=== PATIENT | male | born 1955 ===

== ENCOUNTER → 2020-10-23 | Outpatient (CLI) | payer OTHER ==
[~2020-10-23] MED LIST: AZEL137S4 NAS; CALC1CAP8 PO; MAGN500T PO; METH5TAB6 PO; PLAN450T2 PO; ZINC50CA PO
[2020-10-23 14:03] LABS: BASOPHILS % (AUTO) 1 % (0-1); EOSINOPHILS % (AUTO) 2 % (1-7); LYMPHOCYTES % (AUTO) 30 % (22-44); MEAN CORPUSCULAR HEMOGLOBIN 28.8 pg (27.5-34.5); MEAN CORPUSCULAR HGB CONC 33.1 g/dL (33.2-36.2); MEAN PLATELET VOLUME 8.5 fL (7.4-10.4); MONOCYTES % (AUTO) 8 % (2-9); NEUTROPHILS % (AUTO) 59 % (42-75); PLATELET COUNT 386 x10^3/uL (130-400); RED BLOOD COUNT 5.34 x10^6/uL (4.38-5.82); RED CELL DISTRIBUTION WIDTH 14.7 % (9.4-14.8)
[2020-10-23 14:05] LABS: MD NO
[2020-10-23 14:08] LABS: ALANINE AMINOTRANSFERASE 27 U/L (12-78); ANION GAP 1 mmol/L (5-15); CALCIUM 9.1 mg/dL (8.5-10.1); CHLORIDE 108 mmol/L (98-107); MICROSCOPIC NOT IND
[2020-10-23 14:10] LABS: ALKALINE PHOSPHATASE 80 U/L (45-117); BILIRUBIN,TOTAL 0.5 mg/dL (0.2-1.0); TOTAL PROTEIN 7.5 g/dL (6.4-8.2)
[2020-10-23 14:21] LABS: INTERNATIONAL NORMALIZED RATIO 0.99 (0.93-1.1); PROTHROMBIN TIME 10.6 Seconds (9.6-11.5)
== END | disposition home or self-care (01) ==
LOC: STAR 12:42
PROVIDERS: ATTEND Neurological Surgery
DX: Z01.812 Encounter for preprocedural laboratory examination (principal); Z20.822 Contact with and (suspected) exposure to COVID-19; Z01.818 Encounter for other preprocedural examination; Z01.811 Encounter for preprocedural respiratory examination; Z01.810 Encounter for preprocedural cardiovascular examination; M47.892 Other spondylosis, cervical region; R94.31 Abnormal electrocardiogram [ECG] [EKG]; R82.90 Unspecified abnormal findings in urine; R79.1 Abnormal coagulation profile; M50.122 Cervical disc disorder at C5-C6 level with radiculopathy
CPT/HCPCS: 36415; 71046; 80053; 81003; 85025; 85610; 85730; 93005; U0003